=== PATIENT | male | born 1980 | race Caucasian/White ===

== ENCOUNTER 2021-04-04 11:14 | Outpatient (CLI) | payer BC ==
[2021-04-05 08:57] LABS: SARS-CoV-2 PCR by NAA Not Detected (NotDetected)
== END 2021-04-04 11:15 | disposition home or self-care (01) ==
LOC: CSHLAB 11:14
PROVIDERS: ATTEND Internal Medicine Gastroenterology
DX: Z20.822 Contact with and (suspected) exposure to COVID-19 (principal); K62.5 Hemorrhage of anus and rectum
CPT/HCPCS: U0003; U0005

== ENCOUNTER 2021-04-09 06:02 | Day surgery (SDC) | payer BC ==
[2021-04-03 11:17] VITALS: BMI 29.2
[2021-04-09] MEDS ORDERED: Lidocaine 1% MPF 2 ML VIAL ONE (07:52)
[2021-04-09] MEDS ORDERED: Midazolam HCl 2 mg/2 ml Vial ONE (08:14)
[2021-04-09] MEDS ORDERED: PROPOFOL 40 ML ONE (08:15)
[2021-04-09] MEDS ORDERED: PROPOFOL 20 ML ONE (08:47)
== END 2021-04-09 09:37 | disposition home or self-care (01) ==
LOC: CSHSDC 06:02
PROVIDERS: ATTEND Internal Medicine Gastroenterology
PROC: 0DBN8ZZ Excision of Sigmoid Colon, Via Natural or Artificial Opening Endoscopic (ICD-10-PCS; principal; 2021-04-09)
DX: K62.5 Hemorrhage of anus and rectum (principal); K63.5 Polyp of colon; K64.9 Unspecified hemorrhoids; K21.9 Gastro-esophageal reflux disease without esophagitis; F17.210 Nicotine dependence, cigarettes, uncomplicated
CPT/HCPCS: 88305; J2250; J2704